=== PATIENT | female | born 2000 | race Asian ===

== ENCOUNTER 2023-03-29 14:56 | Inpatient (IN) ==
[2023-03-29 16:50] LABS: Urine Appearance Clear; Urine Bilirubin Negative (Negative); Urine Blood Negative (Negative); Urine Color Colorless; Urine Glucose Negative (Negative); Urine Ketones 1+ (Negative); Urine Nitrite Negative (Negative); Urine Protein Negative (Negative); Urine Specific Gravity 1.006 (1.002-1.030); Urine Urobilinogen Negative (Negative)
[2023-03-29 16:53] LABS: Hematocrit 40.6 % (35-45); Hemoglobin 13.4 g/dL (11.5-14.3); Mean Corpuscular Hemoglobin 24.6 pg (27-33); Mean Corpuscular Hgb Conc 32.9 g/dL (31-36); Mean Corpuscular Volume 74.7 fL (80-97); Mean Platelet Volume 7.6 fL (7.5-11.2); Platelet Count 304 10^3/uL (150-450); Red Blood Count 5.43 10^6/uL (3.63-4.92); Red Cell Distribution Width 14.1 % (12-17)
[2023-03-29 17:05] LABS: Urine Bacteria Absent /HPF (Absent); Urine Red Blood Cell Trace(0-2/hpf) /HPF (0-Trace); Urine Squamous Epithelial Cell Present /HPF (Absent); Urine White Blood Cell 1+(6-10/hpf) /HPF (0-Trace)
[2023-03-29 17:11] LABS: Urine Benzodiazepine Screen None Detected (None Detect); Urine Cannabinoids Screen None Detected (None Detect)
[2023-03-29 17:14] LABS: ABS Eosinophils 0.1 10^3/uL (0.0-0.5); ABS Monocytes 0.4 10^3/uL (0.0-0.9); ABS Neutrophils 5.5 10^3/uL (1.5-7.6); Eosinophil % 1.4 %; Lymphocyte % 13.9 %
[2023-03-29 17:42] LABS: ALT 13 U/L (7-52); AST 15 U/L (13-39); Acetaminophen < 15 mcg/mL; Albumin 4.6 g/dL (3.2-5.2); Albumin/Globulin Ratio 1.8 (1-3); Alcohol, S < 13 mg/dL (<13); Alkaline Phosphatase 71 U/L (35-149); Anion Gap 8 mmol/L (2-16); Blood Urea Nitrogen 11 mg/dL (6-24); CO2 Carbon Dioxide 26 mmol/L (22-32); Calcium 9.5 mg/dL (8.6-10.3); Chloride 103 mmol/L (101-111); Creatinine, Serum 0.72 mg/dL (0.51-0.95); Globulin 2.6 g/dL (2-4); Glucose 86 mg/dL (70-100); Potassium 4.4 mmol/L (3.5-5.0); Salicylate < 2.50 mg/dL (<30); Sodium 137 mmol/L (135-145); Total Bilirubin 0.9 mg/dL (0.2-1.0); Total Protein 7.2 g/dL (6.4-8.9); eGFR CKD-EPI 122.7 (>60)
[2023-03-29 17:50] LABS: HCG Pregnancy < 0.60 mIU/mL
[2023-03-29 17:55] LABS: TSH Ultra Thyroid Stim Horm 1.52 mcIU/mL (0.34-5.60)
[2023-03-29 18:44] LABS: Urine Opiates Screen None Detected (None Detect)
[2023-03-29] MEDS ORDERED: Ondansetron ODT 4 mg TAB 4 MG TAB PO PRN (22:54)
[2023-03-30 08:19] LABS: HDL Cholesterol 66.4 mg/dL
[2023-03-30] MEDS ORDERED: Vitamin THERAPEUTIC TAB PO SCH (09:00)
[2023-03-31] MEDS: Ondansetron ODT 4 mg TAB 4 MG TAB ONE (11:43)
[2023-04-02 08:01] VITALS: BP 118/58
[2023-04-02] MEDS: Influenza vaccine *QUAD* *2023-24* 0.5 ML SYRINGE IM ONE (15:02)
== END 2023-04-02 16:30 | disposition home or self-care (01) | DRG 754 ==
LOC: ED 14:56 → EDHOLD 18:56 → BSU 21:54
PROVIDERS: ADMIT Psychiatry & Neurology Psychiatry; ATTEND Student in an Organized Health Care Education/Training Program